=== PATIENT | female | born 1975 | race Caucasian/White ===

== ENCOUNTER → 2020-07-26 | Outpatient (CLI) | payer BC ==
[~2020-07-26] MED LIST: CATHETER FLUSH 10 ML SYR IV PRN; HOLD METFORMIN - RECEIVED CONTRAST 20 ML VIAL IV SCH; IOHEXOL 350 MG/ML 100 ML (OMNIPAQUE 350) VIAL IV ONE; NS 100 ML (IVPB) BAG IV ONE
--- NOTE | 2020-07-26 12:45 | Diagnostic Imaging Report ---
CLINICAL INDICATION: Patient with dysphagia and globus sensation when swallowing x2 weeks. Mass seen on left side of the neck on ultrasound from outside imaging. Patient has no history cancer. EXAM: Axial CT scan of the neck soft tissue performed with 75 mL of Omnipaque 350 IV contrast. Sagittal and coronal reformatted images are created. Auto Exposure Controls were utilized during the CT exam to meet ALARA standards for radiation dose reduction. COMPARISON: Outside ultrasound of the thyroid gland dated 07/13/2020 from [facility]. Images and report are loaded onto the PACS system. FINDINGS: There is a 10 mm x 8 mm in greatest axial dimension x 10 mm in craniocaudal dimension, predominantly circumscribed area with slight increased density surrounding it located in the left thyroid cartilage region which is seen just above the level of the glottis. There is no significant high density calcification associated with it. There is mild encroachment upon the left periglottic soft tissue. There is no evidence of adjacent fat stranding. It is noted that the left omohyoid strut muscle is slightly larger than the right which may just be physiologic. The remainder of the neck soft tissue structures are unremarkable. The nasopharynx, oropharynx, hypopharynx, laryngeal soft tissue structures are unremarkable. Salivary glands and thyroid gland show no significant abnormality. Of note, the thyroid gland is better visualized on the comparison ultrasound. There is no neck lymphadenopathy or fluid collection seen. There is no significant inflammatory process or fat stranding. Visualized portion of the oral cavity, tongue, sublingual, and submandibular regions are unremarkable. Visualized upper lung cline are clear. There is degenerative disease involving the C5-C6 level with the appearance of diffuse disc bulge and moderate loss of disc space height. Limited visualization of the intracranial structures are unremarkable. Orbits and globes are unremarkable. There is mild mucosal thickening involving both maxillary sinuses. IMPRESSION: 1: There is a 10 mm, in greatest dimension, circumscribed lesion in the left thyroid cartilage area. This correlates to the area on the thyroid ultrasound exam. There is no adjacent fat stranding or adjacent destructive process seen. There is minimal encroachment upon the left periglottic fat with no significant mass effect upon the larynx. This lesion is nonspecific. Considerations may include dystrophic ossification of the thyroid cartilage which is not calcified. Etiology such as Chondroma may be considered. Although this lesion does not appear significantly destructive and there is no significant calcification associated with it, chondrosarcoma should also be excluded. Follow-up CT scan of the neck in 3 months postcontrast is suggested to evaluate for stability. ENT consultation is also suggested. 2: Otherwise, the remainder of this exam is unremarkable for patient's age. 3: C5-C6 cervical spine degenerative disease. Dictated by: Dictated on workstation # [id number]
== END ==
LOC: RAD FS 09:11
PROVIDERS: ATTEND Nurse Practitioner Family
DX: E07.89 Other specified disorders of thyroid (principal); M47.812 Spondylosis without myelopathy or radiculopathy, cervical region
CPT/HCPCS: 70491

== ENCOUNTER 2022-11-27 18:54 | Emergency (ER) | payer BC ==
[2022-11-27 19:02] VITALS: BP 162/105
--- NOTE | 2022-11-27 19:18 | ED Upper Extremity ---
General Chief Complaint: Upper Extremity Stated Complaint: RT SHOULDER PAIN Nursing Triage Note: Pt complaining of right shoulder pain that started about 2 weeks ago. Pt was seen by her pcp and had negative xrays and was told to come to ED for further evaluation History of Present Illness Date Seen by Provider: Nov 27, 2022 Time Seen by Provider: 19:10 Initial Comments 47-year-old female is here with complaints of right shoulder pain for the past 2 weeks after she injured it while lifting and cleaning things in the house. Patient went to her chiropractor couple times and also to urgent care and was told it was due to her neck and her back and was treated for that without any resolution in her symptoms for her right shoulder. Today she went to urgent care and had an x-ray done, and the urgent care doctor advised her to come to the ER. Pt states that she has been taking ibuprofen and Tylenol at home which has not been helping with the pain. Patient is unsure what to do and she feels like her shoulder pain is not been assessed adequately. Patient is reluctant to have a second x-ray of her shoulder done since she just had one urgent care. Allergies and Home Medications Allergies Coded Allergies: No Allergy Information Available (Unverified , 07/26/20) Patient Home Medication List Home Medication List Reviewed: Yes Review of Systems Constitutional: no symptoms reported EENTM: no symptoms reported Respiratory: no symptoms reported Musculoskeletal: see HPI, muscle pain Past Jtjtlbt-[id number]-[id number] Hx Patient Social History Tobacco Use?: No Use of E-Cig and/or Vaping dev: No Substance use?: No Alcohol Use?: No Pt feels they are or have been: No Physical Exam Vital Signs Vital Signs - First Documented 11/27/22 19:02 Pulse 100 Resp 18 B/P (MAP) 162/105 (124) Pulse Ox 94 O2 Delivery Room Air Capillary Refill : Less Than 3 Seconds Height, Weight, BMI Height: '" Weight: lbs. oz. kg; BMI Method: General Appearance: WD/WN, no apparent distress HEENT: PERRL/EOMI Neck: non-tender, full range of motion, supple, normal inspection Cardiovascular: regular rate, rhythm Respiratory: chest non-tender, lungs clear, normal breath sounds Back: normal inspection Shoulder: normal inspection (Right side.), no evidence of injury (No obvious signs of injury, no bruising.), limited ROM, pain, soft tissue tenderness Elbow/Forearm: normal inspection, non-tender, no evidence of injury, normal ROM, Right Wrist: Yes normal inspection, Yes non-tender, Yes no evidence of injury, Yes normal ROM Neurologic/Psychiatric: alert, normal mood/affect, oriented x 3 Skin: normal color Progress/Results/Core Measures Results/Orders My Orders Orders - JONAH DOWELL MD Shoulder 3 View Right (11/27/22 19:49) Tramadol Tablet (Ultram Tablet) (11/27/22 20:00) Ice: Apply To Affected Area (11/27/22 19:52) Shoulder Immoblizer (11/27/22 19:52) Medications Given in ED Current Medications Medications Dose Ordered Sig/Yesenia Route Start Time Stop Time Status Last Admin Dose Admin Tramadol HCl 50 mg ONCE ONCE PO 11/27/22 20:00 11/27/22 20:01 DC 11/27/22 20:01 50 MG Vital Signs/I&O 11/27/22 19:02 Pulse 100 Resp 18 B/P (MAP) 162/105 (124) Pulse Ox 94 O2 Delivery Room Air Blood Pressure Mean: 124 Progress Progress Note : Progress Note 1. LEFT SHOULDER TENDONITIS: - XR RIGHT SHOULDER: tendonitis , no fracture or dislocation - Tramadol given in ER - Sling given - Advised ice/ Ibuprofen/ physical therapy order from [facility]CP[facility] Ortho with follow up within 7 days - Pt wants to follow up in [facility] with Ortho. Advised to follow up with Dr. Casey ( ortho) within 7 days. Call to make appointment. - XR Shoulder negative for fracture or dislocation, will need to rule out shoulder cuff injury with MRI in Ortho office. -The patient was seen in the ED, and treated appropriately to presentation at a specific point in time. Patient is informed that there is a possibility that disease and illness can evolve and change in acuity rapidly or slowly after patient is discharged from the ER. Precautionary advice given to the patient for immediate return to ER if symptoms worsen or do not resolve, and to seek emergency care sooner rather than later. Pt also advised on the importance of PCP follow up and compliance with management and follow up plan with PCP and/or specialist, as this is part of the management plan. Pt verbally expressed understanding. Diagnostic Imaging Diagonstic Imaging: Xray Plain Films/CT/US/NM/MRI: other Comments NAME: SATISH GONZALEZ [facility] REC#: [id number] PT STATUS: REG ER : 1975 PHYSICIAN: JONAH DOWELL MD ADMIT DATE: 11/27/22/ER FS Draft Date of Exam:11/27/22 SHOULDER 3 VIEW RIGHT Indication: Right shoulder pain. AP, oblique, and transscapular views of the right shoulder are obtained. No acute fracture is seen. Glenohumeral joint and AC joint appear in good alignment. There is fairly extensive amorphous calcification superior to the humeral head, compatible with calcific tendinitis. 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 No acute fracture or dislocation. Dictated on workstation # [id number] Dict: 11/27/222005 Trans: 11/27/222017 CVB [id number] Interpreted by: SHARMAINE RODRIGEZ MD Electronically signed by: Departure Impression Primary Impression: Right shoulder tendonitis Disposition: 01 HOME, SELF-CARE Condition: Stable Departure-Patient Inst. Referrals: NELSON BRITO (PCP) Primary Care Physician SHAWN HILLS MD (Family) Primary Care Physician Patient Instructions: Shoulder Tendinopathy (DC), How to Use a Shoulder Sling, Tendonitis (DC) Add. Discharge Instructions: - Sling given - Advised ice/ Ibuprofen/ physical therapy order from [facility]CP[facility] Ortho with follow up within 7 days - Pt wants to follow up in [facility] with Ortho. Advised to follow up with Maxwell Casey ( ortho) within 7 days. Call to make appointment. - XR Shoulder negative for fracture or dislocation, will need to rule out shoulder cuff injury with MRI in Ortho office. All discharge instructions reviewed with patient and/or family. Voiced un derstanding. JONAH DOWELL MD Nov 27, 2022 19:18
--- NOTE | 2022-11-27 20:19 | Diagnostic Imaging Report ---
Indication: Right shoulder pain. AP, oblique, and transscapular views of the right shoulder are obtained. No acute fracture is seen. Glenohumeral joint and AC joint appear in good alignment. There is fairly extensive amorphous calcification superior to the humeral head, compatible with calcific tendinitis. 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 No acute fracture or dislocation. Dictated by: Dictated on workstation # [id number]
== END 2022-11-27 20:38 | disposition home or self-care (01) ==
LOC: EDUNIT# 18:54 → ER FS 18:56
DX: M75.31 Calcific tendinitis of right shoulder (principal); Z28.310 Unvaccinated for COVID-19
CPT/HCPCS: 73030